=== PATIENT | male | born 1945 | race Caucasian/White ===

== ENCOUNTER 2020-05-04 06:04 | Outpatient (REF) | payer MEDICARE, SELFPAY ==
[2020-05-04 10:29] LABS: INTERNATIONAL NORM RATIO 3.4 (0.9-1.1)
== END 2020-05-04 06:05 | disposition home or self-care (01) ==
LOC: HO.HSHHMC 06:04
PROVIDERS: Visit Provider Internal Medicine Interventional Cardiology
DX: I48.91 Unspecified atrial fibrillation (principal)
CPT/HCPCS: 36415; 85610

== ENCOUNTER 2020-05-11 05:51 | Outpatient (REF) | payer MEDICARE, SELFPAY ==
[2020-05-11 09:55] LABS: INTERNATIONAL NORM RATIO 2.5 (0.9-1.1); Prothrombin Time 29.7 SEC (10.8-13.0)
== END 2020-05-11 05:52 | disposition home or self-care (01) ==
LOC: HO.HSHHMC 05:51
PROVIDERS: Visit Provider Internal Medicine Interventional Cardiology
DX: I48.91 Unspecified atrial fibrillation (principal)
CPT/HCPCS: 36415; 85610

== ENCOUNTER 2020-05-18 | Outpatient (REF) | payer MEDICARE, SELFPAY ==
[2020-05-18 09:30] LABS: INTERNATIONAL NORM RATIO 2.7 (0.9-1.1); Prothrombin Time 32.1 SEC (10.8-13.0)
== END 2020-05-18 00:01 | disposition home or self-care (01) ==
LOC: HO.HSHHMC
PROVIDERS: Visit Provider Internal Medicine Interventional Cardiology
DX: I48.91 Unspecified atrial fibrillation (principal); Z79.01 Long term (current) use of anticoagulants
CPT/HCPCS: 36415; 85610

== ENCOUNTER 2020-06-01 | Outpatient (REF) | payer MEDICARE, SELFPAY ==
[2020-06-01 12:31] LABS: INTERNATIONAL NORM RATIO 2.7 (0.9-1.1); Prothrombin Time 32.8 SEC (10.8-13.0)
== END 2020-06-01 00:01 | disposition home or self-care (01) ==
LOC: HO.HSHHMC
PROVIDERS: Visit Provider Internal Medicine Interventional Cardiology
DX: I48.91 Unspecified atrial fibrillation (principal)
CPT/HCPCS: 36415; 85610

== ENCOUNTER 2020-06-15 10:31 | Outpatient (REF) | payer MEDICARE, SELFPAY ==
[2020-06-15 10:27] LABS: INTERNATIONAL NORM RATIO 4.1 (0.9-1.1); Prothrombin Time 49.2 SEC (10.8-13.0)
== END 2020-06-15 10:32 | disposition home or self-care (01) ==
LOC: HO.HSHHMC 10:31
PROVIDERS: Visit Provider Internal Medicine Interventional Cardiology
DX: I48.91 Unspecified atrial fibrillation (principal)
CPT/HCPCS: 36415; 85610

== ENCOUNTER 2020-06-22 10:27 | Outpatient (REF) | payer MEDICARE, SELFPAY ==
[2020-06-22 10:19] LABS: INTERNATIONAL NORM RATIO 2.5 (0.9-1.1); Prothrombin Time 29.5 SEC (10.8-13.0)
== END 2020-06-22 10:28 | disposition home or self-care (01) ==
LOC: HO.HSHHMC 10:27
PROVIDERS: Visit Provider Internal Medicine Interventional Cardiology
DX: I48.91 Unspecified atrial fibrillation (principal)
CPT/HCPCS: 36415; 85610

== ENCOUNTER 2020-06-25 07:20 | Outpatient (REF) | payer MEDICARE, SELFPAY ==
[2020-06-25 11:42] LABS: INTERNATIONAL NORM RATIO 2.4 (0.9-1.1)
== END 2020-06-25 07:21 | disposition home or self-care (01) ==
LOC: HO.HSHHMC 07:20
PROVIDERS: Visit Provider Internal Medicine Interventional Cardiology
DX: I48.91 Unspecified atrial fibrillation (principal)
CPT/HCPCS: 36415; 85610

== ENCOUNTER 2020-07-02 05:53 | Outpatient (REF) | payer MEDICARE, SELFPAY ==
[2020-07-02 10:09] LABS: INTERNATIONAL NORM RATIO 2.6 (0.9-1.1); Prothrombin Time 31.2 SEC (10.8-13.0)
== END 2020-07-02 05:54 | disposition home or self-care (01) ==
LOC: HO.HSHHMC 05:53
PROVIDERS: Visit Provider Internal Medicine Interventional Cardiology
DX: I48.91 Unspecified atrial fibrillation (principal)
CPT/HCPCS: 36415; 85610

== ENCOUNTER 2020-07-16 | Outpatient (REF) | payer MEDICARE, SELFPAY ==
[2020-07-16 11:17] LABS: INTERNATIONAL NORM RATIO 2.4 (0.9-1.1); Prothrombin Time 29.3 SEC (10.8-13.0)
== END 2020-07-16 00:01 ==
LOC: HO.HSHHMC
PROVIDERS: Visit Provider Internal Medicine Interventional Cardiology
DX: I48.91 Unspecified atrial fibrillation (principal)
CPT/HCPCS: 36415; 85610

== ENCOUNTER 2020-07-30 07:37 | Outpatient (REF) | payer MEDICARE, SELFPAY ==
[2020-07-30 09:36] LABS: INTERNATIONAL NORM RATIO 2.3 (0.9-1.1); Prothrombin Time 27.5 SEC (10.8-13.0)
== END 2020-07-30 07:38 | disposition home or self-care (01) ==
LOC: HO.HSHHMC 07:37
PROVIDERS: Visit Provider Internal Medicine Interventional Cardiology
DX: I48.91 Unspecified atrial fibrillation (principal)
CPT/HCPCS: 36415; 85610

== ENCOUNTER 2020-08-14 07:14 | Outpatient (REF) | payer MEDICARE, SELFPAY ==
[2020-08-14 09:55] LABS: INTERNATIONAL NORM RATIO 2.1 (0.9-1.1); Prothrombin Time 25.2 SEC (10.8-13.0)
== END 2020-08-14 07:15 | disposition home or self-care (01) ==
LOC: HO.HSHHMC 07:14
PROVIDERS: Visit Provider Internal Medicine Interventional Cardiology
DX: I48.91 Unspecified atrial fibrillation (principal)
CPT/HCPCS: 36415; 85610

== ENCOUNTER 2020-08-28 08:58 | Outpatient (REF) | payer MEDICARE, SELFPAY ==
[2020-08-28 10:57] LABS: Prothrombin Time 23.8 SEC (10.8-13.0)
== END 2020-08-28 08:59 | disposition home or self-care (01) ==
LOC: HO.HSHHMC 08:58
PROVIDERS: Visit Provider Internal Medicine Interventional Cardiology
DX: I48.91 Unspecified atrial fibrillation (principal)
CPT/HCPCS: 36415; 85610

== ENCOUNTER 2020-09-11 05:48 | Outpatient (REF) | payer MEDICARE, SELFPAY ==
[2020-09-11 09:44] LABS: Prothrombin Time 23.9 SEC (10.8-13.0)
== END 2020-09-11 05:49 | disposition home or self-care (01) ==
LOC: HO.HSHHMC 05:48
PROVIDERS: Visit Provider Internal Medicine Interventional Cardiology
DX: I48.91 Unspecified atrial fibrillation (principal)
CPT/HCPCS: 36415; 85610

== ENCOUNTER 2020-09-25 05:55 | Outpatient (REF) | payer MEDICARE, SELFPAY ==
[2020-09-25 09:23] LABS: INTERNATIONAL NORM RATIO 2.5 (0.9-1.1); Prothrombin Time 29.8 SEC (10.8-13.0)
== END 2020-09-25 05:56 | disposition home or self-care (01) ==
LOC: HO.HSHHMC 05:55
PROVIDERS: Visit Provider Internal Medicine Interventional Cardiology
DX: I48.91 Unspecified atrial fibrillation (principal)
CPT/HCPCS: 36415; 85610

== ENCOUNTER 2020-10-09 05:35 | Outpatient (REF) | payer MEDICARE, SELFPAY ==
[2020-10-09 09:51] LABS: INTERNATIONAL NORM RATIO 2.5 (0.9-1.1); Prothrombin Time 29.8 SEC (10.8-13.0)
== END 2020-10-09 05:36 | disposition home or self-care (01) ==
LOC: HO.HSHHMC 05:35
PROVIDERS: Visit Provider Internal Medicine Interventional Cardiology
DX: I48.91 Unspecified atrial fibrillation (principal)
CPT/HCPCS: 36415; 85610

== ENCOUNTER 2020-10-23 05:35 | Outpatient (REF) | payer MEDICARE, SELFPAY ==
[2020-10-23 09:17] LABS: INTERNATIONAL NORM RATIO 2.1 (0.9-1.1); Prothrombin Time 25.4 SEC (10.8-13.0)
== END 2020-10-23 05:36 | disposition home or self-care (01) ==
LOC: HO.HSHHMC 05:35
PROVIDERS: Visit Provider Internal Medicine Interventional Cardiology
DX: I48.91 Unspecified atrial fibrillation (principal)
CPT/HCPCS: 36415; 85610

== ENCOUNTER 2020-11-07 07:58 | Outpatient (REF) | payer MEDICARE, SELFPAY ==
[2020-11-06 11:36] LABS: INTERNATIONAL NORM RATIO 2.2 (0.9-1.1); Prothrombin Time 25.8 SEC (10.8-13.0)
== END 2020-11-07 07:59 | disposition home or self-care (01) ==
LOC: HO.HSHHMC 07:58
PROVIDERS: Visit Provider Internal Medicine Interventional Cardiology
DX: I48.91 Unspecified atrial fibrillation (principal)
CPT/HCPCS: 36415; 85610

== ENCOUNTER 2020-11-20 06:31 | Outpatient (REF) | payer MEDICARE, SELFPAY ==
[2020-11-20 11:30] LABS: INTERNATIONAL NORM RATIO 2.4 (0.9-1.1); Prothrombin Time 28.6 SEC (10.8-13.0)
== END 2020-11-20 06:32 | disposition home or self-care (01) ==
LOC: HO.HSHHMC 06:31
PROVIDERS: Visit Provider Internal Medicine Interventional Cardiology
DX: I48.20 Chronic atrial fibrillation, unspecified (principal)
CPT/HCPCS: 36415; 85610

== ENCOUNTER 2020-12-04 00:15 | Outpatient (REF) | payer MEDICARE, SELFPAY ==
[2020-12-04 11:59] LABS: Prothrombin Time 24.1 SEC (10.8-13.0)
== END 2020-12-04 00:16 | disposition home or self-care (01) ==
LOC: HO.LHD 00:15
PROVIDERS: Visit Provider Internal Medicine Interventional Cardiology
DX: Z13.89 Encounter for screening for other disorder (principal)
CPT/HCPCS: 36415; 85610

== ENCOUNTER 2020-12-18 00:18 | Outpatient (REF) | payer MEDICARE, SELFPAY ==
[2020-12-18 11:02] LABS: INTERNATIONAL NORM RATIO 1.9 (0.9-1.1); Prothrombin Time 22.9 SEC (10.8-13.0)
== END 2020-12-18 00:19 | disposition home or self-care (01) ==
LOC: HO.LHD 00:18
PROVIDERS: Visit Provider Internal Medicine Interventional Cardiology
DX: I48.91 Unspecified atrial fibrillation (principal)
CPT/HCPCS: 36415; 85610

== ENCOUNTER 2020-12-25 06:37 | Outpatient (REF) | payer MEDICARE, SELFPAY ==
[2020-12-25 11:22] LABS: INTERNATIONAL NORM RATIO 2.3 (0.9-1.1); Prothrombin Time 27.9 SEC (10.8-13.0)
== END 2020-12-25 06:38 | disposition home or self-care (01) ==
LOC: HO.LHD 06:37
PROVIDERS: Visit Provider Internal Medicine Interventional Cardiology
DX: I48.91 Unspecified atrial fibrillation (principal)
CPT/HCPCS: 36415; 85610

== ENCOUNTER 2021-01-08 | Outpatient (REF) | payer MEDICARE, SELFPAY ==
[2021-01-08 09:31] LABS: INTERNATIONAL NORM RATIO 1.8 (0.9-1.1)
== END 2021-01-08 00:01 | disposition home or self-care (01) ==
LOC: HO.HSHHMC
PROVIDERS: Visit Provider Internal Medicine Interventional Cardiology
DX: I48.91 Unspecified atrial fibrillation (principal)
CPT/HCPCS: 36415; 85610

== ENCOUNTER 2021-01-15 | Outpatient (REF) | payer MEDICARE, SELFPAY ==
[2021-01-15 09:42] LABS: INTERNATIONAL NORM RATIO 2.3 (0.9-1.1); Prothrombin Time 27.9 SEC (10.8-13.0)
== END 2021-01-15 00:01 | disposition home or self-care (01) ==
LOC: HO.HSHHMC
PROVIDERS: Visit Provider Internal Medicine Interventional Cardiology
DX: I48.91 Unspecified atrial fibrillation (principal)
CPT/HCPCS: 36415; 85610

== ENCOUNTER 2021-01-22 | Outpatient (REF) | payer MEDICARE, SELFPAY ==
[2021-01-22 09:03] LABS: INTERNATIONAL NORM RATIO 2.8 (0.9-1.1); Prothrombin Time 33.2 SEC (10.8-13.0)
== END 2021-01-22 00:01 | disposition home or self-care (01) ==
LOC: HO.HSHHMC
PROVIDERS: Visit Provider Internal Medicine Interventional Cardiology
DX: I48.91 Unspecified atrial fibrillation (principal)
CPT/HCPCS: 36415; 85610

== ENCOUNTER 2021-02-05 | Outpatient (REF) | payer MEDICARE, SELFPAY ==
[2021-02-05 09:47] LABS: INTERNATIONAL NORM RATIO 2.2 (0.9-1.1); Prothrombin Time 25.1 SEC (9.9-13.0)
== END 2021-02-05 00:01 | disposition home or self-care (01) ==
LOC: HO.HSHHMC
PROVIDERS: Visit Provider Internal Medicine Interventional Cardiology
DX: I48.91 Unspecified atrial fibrillation (principal)
CPT/HCPCS: 36415; 85610

== ENCOUNTER 2021-02-19 | Outpatient (REF) | payer MEDICARE, SELFPAY ==
[2021-02-19 09:47] LABS: Prothrombin Time 23.2 SEC (9.9-13.0)
== END 2021-02-19 00:01 | disposition home or self-care (01) ==
LOC: HO.HSHHMC
PROVIDERS: Visit Provider Internal Medicine Interventional Cardiology
DX: I48.91 Unspecified atrial fibrillation (principal)
CPT/HCPCS: 36415; 85610

== ENCOUNTER 2021-03-05 05:00 | Outpatient (REF) | payer MEDICARE, SELFPAY ==
[2021-03-05 09:19] LABS: INTERNATIONAL NORM RATIO 2.3 (0.9-1.1); Prothrombin Time 26.4 SEC (9.9-13.0)
== END 2021-03-05 05:01 | disposition home or self-care (01) ==
LOC: HO.HSHHMC 05:00
PROVIDERS: Visit Provider Internal Medicine Interventional Cardiology
DX: I48.91 Unspecified atrial fibrillation (principal)
CPT/HCPCS: 36415; 85610

== ENCOUNTER 2021-03-19 05:00 | Outpatient (REF) | payer MEDICARE, SELFPAY ==
[2021-03-19 10:12] LABS: INTERNATIONAL NORM RATIO 2.4 (0.9-1.1); Prothrombin Time 28.1 SEC (9.9-13.0)
== END 2021-03-19 05:01 ==
LOC: HO.HSHHMC 05:00
PROVIDERS: Visit Provider Internal Medicine Interventional Cardiology
DX: I48.91 Unspecified atrial fibrillation (principal)
CPT/HCPCS: 36415; 85610

== ENCOUNTER 2021-04-02 05:00 | Outpatient (REF) | payer MEDICARE, SELFPAY ==
[2021-04-02 11:05] LABS: INTERNATIONAL NORM RATIO 2.7 (0.9-1.1); Prothrombin Time 31.9 SEC (9.9-13.0)
== END 2021-04-02 05:01 ==
LOC: HO.HSHHMC 05:00
PROVIDERS: Visit Provider Internal Medicine Interventional Cardiology
DX: I48.91 Unspecified atrial fibrillation (principal)
CPT/HCPCS: 36415; 85610

== ENCOUNTER 2021-04-16 05:55 | Outpatient (REF) | payer MEDICARE, SELFPAY ==
[2021-04-16 10:57] LABS: INTERNATIONAL NORM RATIO 2.7 (0.9-1.1); Prothrombin Time 31.7 SEC (9.9-13.0)
== END 2021-04-16 05:56 | disposition home or self-care (01) ==
LOC: HO.HSHHMC 05:55
PROVIDERS: Visit Provider Internal Medicine Interventional Cardiology
DX: I48.91 Unspecified atrial fibrillation (principal)
CPT/HCPCS: 36415; 85610

== ENCOUNTER 2021-04-30 10:00 | Outpatient (REF) | payer MEDICARE, SELFPAY ==
[2021-04-30 10:32] LABS: INTERNATIONAL NORM RATIO 2.6 (0.9-1.1)
== END 2021-04-30 10:01 | disposition home or self-care (01) ==
LOC: HO.LHD 10:00
PROVIDERS: Visit Provider Internal Medicine Interventional Cardiology
DX: I48.91 Unspecified atrial fibrillation (principal)
CPT/HCPCS: 36415; 85610

== ENCOUNTER 2021-05-14 07:07 | Outpatient (REF) | payer MEDICARE, SELFPAY ==
[2021-05-14 10:30] LABS: INTERNATIONAL NORM RATIO 2.8 (0.9-1.1); Prothrombin Time 32.1 SEC (9.9-13.0)
== END 2021-05-14 07:08 | disposition home or self-care (01) ==
LOC: HO.LHD 07:07
PROVIDERS: Visit Provider Internal Medicine Interventional Cardiology
DX: I48.91 Unspecified atrial fibrillation (principal)
CPT/HCPCS: 36415; 85610

== ENCOUNTER 2021-05-28 12:41 | Outpatient (REF) | payer MEDICARE, SELFPAY ==
[2021-05-28 12:01] LABS: INTERNATIONAL NORM RATIO 2.3 (0.9-1.1); Prothrombin Time 26.5 SEC (9.9-13.0)
== END 2021-05-28 12:42 | disposition home or self-care (01) ==
LOC: HO.HSHHMC 12:41
PROVIDERS: Visit Provider Internal Medicine Interventional Cardiology
DX: I48.91 Unspecified atrial fibrillation (principal)
CPT/HCPCS: 36415; 85610

== ENCOUNTER → 2021-06-11 09:59 | Outpatient (BNVA) | payer MEDICARE, SELFPAY | PROVIDERS: PCP Internal Medicine Interventional Cardiology; Visit Provider Internal Medicine | DX: I48.20 Chronic atrial fibrillation, unspecified (principal); Z51.81 Encounter for therapeutic drug level monitoring; Z79.01 Long term (current) use of anticoagulants | CPT/HCPCS: 85610; 99202 ==

== ENCOUNTER → 2021-06-25 08:48 | Outpatient (BNVA) | payer MEDICARE, SELFPAY | PROVIDERS: PCP Internal Medicine Interventional Cardiology; Visit Provider Internal Medicine | DX: I48.20 Chronic atrial fibrillation, unspecified (principal); Z51.81 Encounter for therapeutic drug level monitoring; Z79.01 Long term (current) use of anticoagulants | CPT/HCPCS: 85610; 99211 ==

== ENCOUNTER → 2021-07-09 08:57 | Outpatient (BNVA) | payer MEDICARE, SELFPAY | PROVIDERS: PCP Internal Medicine Interventional Cardiology; Visit Provider Internal Medicine | DX: I48.20 Chronic atrial fibrillation, unspecified (principal); Z51.81 Encounter for therapeutic drug level monitoring; Z79.01 Long term (current) use of anticoagulants | CPT/HCPCS: 85610; 99211 ==

== ENCOUNTER → 2021-07-23 08:13 | Outpatient (BNVA) | payer MEDICARE, SELFPAY | PROVIDERS: PCP Internal Medicine Interventional Cardiology; Visit Provider Internal Medicine | DX: I48.20 Chronic atrial fibrillation, unspecified (principal); Z51.81 Encounter for therapeutic drug level monitoring; Z79.01 Long term (current) use of anticoagulants | CPT/HCPCS: 85610; 99211 ==

== ENCOUNTER → 2021-08-13 08:03 | Outpatient (BNVA) | payer MEDICARE, SELFPAY | PROVIDERS: PCP Internal Medicine Interventional Cardiology; Visit Provider Internal Medicine | DX: I48.20 Chronic atrial fibrillation, unspecified (principal); Z51.81 Encounter for therapeutic drug level monitoring; Z79.01 Long term (current) use of anticoagulants | CPT/HCPCS: 85610; 99211 ==

== ENCOUNTER → 2021-09-03 08:14 | Outpatient (BNVA) | payer MEDICARE, SELFPAY | PROVIDERS: PCP Internal Medicine Interventional Cardiology; Visit Provider Internal Medicine | DX: I48.20 Chronic atrial fibrillation, unspecified (principal); Z51.81 Encounter for therapeutic drug level monitoring; Z79.01 Long term (current) use of anticoagulants | CPT/HCPCS: 85610; 99211 ==